=== PATIENT | female | born 1935 | race Two or more races ===

== ENCOUNTER 2020-04-08 10:18 | Inpatient (IN) | payer MEDICARE, OTHER ==
[~2020-04-08] VITALS: Ht 167.6 cm; Wt 55.8 kg
[2020-04-08 11:10] LABS: BASOPHILS % 1.4 % (0.0-2.0); EOSINOPHILS % 3.5 % (0.0-5.0); HEMATOCRIT. 37.2 % (36.0-48.0); HEMOGLOBIN. 12.4 g/dL (12.0-16.0); LYMPHOCYTES % 30.8 % (20.0-50.0); MEAN CORPUSCULAR HEMOGLOBIN 30.3 pg (28.0-32.0); MEAN CORPUSCULAR VOLUME 90.8 fL (81.0-99.0); MEAN PLATELET VOLUME 7.9 fl (7.4-10.4); MONOCYTES % 9.3 % (2.0-8.0); PLATELET 207 x1000/uL (130-400); RED CELL DISTRIBUTION WIDTH 16.2 % (11.6-14.6)
[2020-04-08 11:16] LABS: CHLORIDE 110 mEq/L (98-107)
[2020-04-08 11:56] LABS: CLARITY URINE CLEAR (CLEAR); COLOR URINE YELLOW (YELLOW); KETONES URINE NEGATIVE (NEGATIVE); LEUKOCYTE ESTERASE URINE NEGATIVE (NEGATIVE); NITRITE URINE NEGATIVE (NEGATIVE); OCCULT BLOOD URINE NEGATIVE (NEGATIVE); PROTEIN URINE NEGATIVE (NEGATIVE); SPECIFIC GRAVITY URINE 1.013 (1.005-1.030)
[2020-04-08 11:57] LABS: INR 1.1; PROTHROMBIN TIME 11.4 sec (9.6-11.0)
[2020-04-08] MEDS ORDERED: LEVOFLOXACIN 750MG PREMIX 150 ML IV ONE (12:00)
[2020-04-08 12:50] LABS: BG BASE EXCESS -4.6 mmol/L (-2.0-2.0); BG CARBOXYHEMOGLOBIN 0.3 % (0.5-1.5); BG DEOXYHEMOGLOBIN 3.8 % (0.0-5.0); BG FRACTION INSPIRED OXYGEN 21; BG HCO3 ACT 19.1 mmol/L (22.0-26.0); BG METHEMOGLOBIN 0.3 % (0.0-1.5); BG OXYGEN SATURATION 96.2 % (92.0-98.5); BG OXYHEMOGLOBIN 95.6 % (94.0-97.0); BG PCO2 30.9 mmHg (35.0-45.0); BG PH 7.409 (7.350-7.450); BG PO2 86.7 mmHg (75.0-100.0); BG SAMPLE SITE LEFT RADIAL; BG TOTAL HEMOGLOBIN 11.4 g/dL (12.0-18.0); BG VENT MODE ROOM AIR
[2020-04-08] MEDS ORDERED: ONDANSETRON HCL 4MG/2ML INJ IV PRN (16:00)
[2020-04-08] MEDS ORDERED: AZITHROMYCIN 500 MG TABLET PO NR (16:00)
[2020-04-08] MEDS ORDERED: CEFTRIAXONE 1 G PREMIX 50 ML IV SCH (16:00)
[2020-04-08] MEDS ORDERED: ACETAMINOPHEN 325MG TABLET PO PRN (16:00)
[2020-04-08] MEDS: ENOXAPARIN 40MG/0.4ML SYR SUBCUT SCH (16:27)
[2020-04-08 23:08] VITALS: BP 134/66
[2020-04-09] VITALS: BP 134/66
[2020-04-09] MEDS ORDERED: LEVO50TA8 PO (02:03)
[2020-04-09] MEDS ORDERED: TRAZ-251 PO (02:05)
[2020-04-09] MEDS ORDERED: HYDR-4009 PO (02:05)
[2020-04-09] MEDS ORDERED: PENI250T2 PO (02:07)
[2020-04-09] MEDS ORDERED: IBUP-2028 PO (02:07)
[2020-04-09 04:00] VITALS: BP 130/64
[2020-04-09 08:00] VITALS: BP 112/76
[2020-04-09] MEDS ORDERED: AZITHROMYCIN 250 MG TABLET PO SCH (09:00)
[2020-04-09] MEDS ORDERED: LITH150C PO (11:44)
[2020-04-09 12:00] VITALS: BP 134/79
[2020-04-09] MEDS ORDERED: DORZ10DR8 EACHEYE (15:07)
[2020-04-09] MEDS ORDERED: BRIM5DRO6 EACHEYE (15:07)
[2020-04-09 16:00] VITALS: BP 146/77
[2020-04-09] MEDS ORDERED: CEFTRIAXONE 1,000 MG in DEXTROSE 5% WATER 50 ML IV SCH (16:00)
[2020-04-09] MEDS: ENOXAPARIN 40MG/0.4ML SYR SUBCUT SCH (16:33)
[2020-04-09] MEDS ORDERED: LITHIUM CARBONATE 150 MG CAPSULE PO SCH (17:00)
[2020-04-09 20:00] VITALS: BP 150/61
[2020-04-10] VITALS: BP_SYST 148; BP_SYST 150; BP_DIAS 61; BP_DIAS 62
== END 2020-04-10 00:05 | disposition short-term general hospital (02) | DRG 193 ==
LOC: ER 10:18 → EDBEDREQSVC 12:06 → EDBEDREQ 12:07 → EDBEDREQTM 12:07 → 7WST 13:40 → EDBEDREQTM 13:41 → EDBEDREQ 13:41 → ENRESERV 22:10 → 6WST 04-09 13:34
PROVIDERS: ADMIT Internal Medicine; ATTEND Internal Medicine
DX: J18.9 Pneumonia, unspecified organism (principal); J96.00 Acute respiratory failure, unspecified whether with hypoxia or hypercapnia; D72.819 Decreased white blood cell count, unspecified; E87.8 Other disorders of electrolyte and fluid balance, not elsewhere classified; F03.90 Unspecified dementia, unspecified severity, without behavioral disturbance, psychotic disturbance, mood disturbance, and anxiety; I10 Essential (primary) hypertension; J45.909 Unspecified asthma, uncomplicated; F31.9 Bipolar disorder, unspecified; Z20.828 Contact with and (suspected) exposure to other viral communicable diseases
CPT/HCPCS: 36415; 36600; 71045; 80053; 81003; 82375; 82805; 83605; 83880; 84145; 84484; 85025; 87635; 93005; 97162; 99285; J0696; J1650; J1956; J7060

== ENCOUNTER 2020-06-22 15:22 | Emergency (ER) | payer OTHER ==
[~2020-06-22] VITALS: Ht 162.6 cm; Wt 58.0 kg
[~2020-06-22 15:22] MED LIST: BRIM5DRO6 EACHEYE; DORZ10DR8 EACHEYE; HYDR-4009 PO; IBUP-2028 PO; LEVO50TA8 PO; LITH150C PO; PENI250T2 PO; TRAZ-251 PO
[2020-06-22 18:05] LABS: BASOPHILS % 0.7 % (0.0-2.0); EOSINOPHILS % 4.2 % (0.0-5.0); HEMATOCRIT. 37.3 % (36.0-48.0); HEMOGLOBIN. 12.3 g/dL (12.0-16.0); LYMPHOCYTES % 31.2 % (20.0-50.0); MEAN CORPUSCULAR HEMOGLOBIN 30.1 pg (28.0-32.0); MEAN CORPUSCULAR VOLUME 90.9 fL (81.0-99.0); MEAN PLATELET VOLUME 8.1 fl (7.4-10.4); MONOCYTES % 6.5 % (2.0-8.0); NEUTROPHILS % 57.4 % (40.0-76.0); PLATELET 205 x1000/uL (130-400); RED CELL DISTRIBUTION WIDTH 15.6 % (11.6-14.6)
[2020-06-22 18:12] LABS: CHLORIDE 111 mEq/L (98-107)
[2020-06-22 19:33] LABS: INR 1.1; PARTIAL THROMBOPLASTIN TIME 30.5 sec (23.4-31.0); PROTHROMBIN TIME 11.4 sec (9.6-11.0)
[2020-06-22 20:37] VITALS: BP 118/85
== END 2020-06-22 20:43 | disposition home or self-care (01) ==
LOC: ER 15:22
DX: F03.90 Unspecified dementia, unspecified severity, without behavioral disturbance, psychotic disturbance, mood disturbance, and anxiety (principal); Z91.83 Wandering in diseases classified elsewhere; F05 Delirium due to known physiological condition; R60.0 Localized edema; F31.9 Bipolar disorder, unspecified; I10 Essential (primary) hypertension; J98.11 Atelectasis; Z79.899 Other long term (current) drug therapy
CPT/HCPCS: 36415; 71045; 80053; 83880; 84484; 85025; 93005; 93970; 99285